=== PATIENT | female | born 1965 | race Two or more races ===

== ENCOUNTER 2019-07-20 22:41 | Emergency (ER) | payer MEDICAID, OTHER ==
[~2019-07-20] VITALS: Ht 170.2 cm; Wt 59.0 kg
--- NOTE | 2019-07-20 22:53 | NUR ---
DR. JACOBO AT BEDSIDE FOR MSE.
--- NOTE | 2019-07-20 23:04 | NUR ---
Patient discharged to home in stable conditon. Written and verbal after care instructions given. Patient verbalizes understanding of instructions. PATIENT LEFT WITH STABLE GAIT.
[2019-07-20 23:05] VITALS: BP 128/80
== END 2019-07-20 23:05 | disposition home or self-care (01) ==
LOC: ER 22:43
DX: B07.0 Plantar wart (principal)
CPT/HCPCS: A4663